=== PATIENT | male | born 1990 | race Caucasian/White ===

== ENCOUNTER 2022-05-02 19:47 | Observation (INO) ==
[2022-05-02 21:01] LABS: Rapid COVID-19 Molecular Undetected (Undetected)
[2022-05-02 21:23] LABS: ABS Lymphocytes 1.7 10^3/ul (1.0-4.8); ABS Monocytes 0.8 10^3/ul (0-0.8); ABS Neutrophils 9.9 10^3/ul (1.5-7.7); Eosinophil % 0.2 %; Hematocrit 42 % (42-52); Lymphocyte % 13.5 %; Mean Corpuscular HGB Conc 33 g/dL (31-36); Mean Corpuscular Hemoglobin 29 pg (27-31); Mean Corpuscular Volume 87 fL (80-94); Mean Platelet Volume 7.9 fL (7.4-10.4); Platelet Count 279 10^3/uL (150-450); Red Blood Count 4.89 10^6 /uL (4.18-5.48); Red Cell Distribution Width 13 % (10-15); White Blood Count 12.5 10^3/uL (3.5-10.8)
[2022-05-02] MEDS ORDERED: ceFAZolin 2 GM PREMIX 2 GM/50 ML BAG ONE (21:31)
[2022-05-02 21:35] LABS: INR 1.03 (0.89-1.11)
[2022-05-02 21:52] LABS: Albumin 4.2 g/dL (3.2-5.2); Albumin/Globulin Ratio 2.3 (1-3); Globulin 1.8 g/dL (2-4); Potassium 3.8 mmol/L (3.5-5.0); Total Bilirubin 0.5 mg/dL (0.2-1.0); eGFR CKD-EPI 104.4 (>60)
[2022-05-02] MEDS ORDERED: Midazolam 2 mg/2 ml VIAL 1 mg/ml 2 ml VIAL (2 mg) ONE (21:53)
[2022-05-02] MEDS ORDERED: fentaNYL 250 mcg/5 ml 50 MCG/ML 5 ml VIAL (250 MCG) ONE (21:53)
[2022-05-02] MEDS ORDERED: Propofol 10 MG/ML 20 ML BTL ONE (21:54)
[2022-05-02] MEDS ORDERED: Lidocaine 2% PF 5 ML VIAL ONE (21:54)
[2022-05-02] MEDS ORDERED: Rocuronium 50 mg VIAL 10 mg/ml 5 ml VIAL (50 mg) ONE (21:57)
[2022-05-02] MEDS ORDERED: Dexamethasone IV 4 MG/ML VIAL 1 ml VIAL ONE (22:21)
[2022-05-02] MEDS ORDERED: HYDROmorphone 0.5 MG/0.5 ML SYRINGE ONE (22:27)
[2022-05-02] MEDS ORDERED: Bupivacaine 0.5% SDV PF 30ML VIAL ONE (22:29)
[2022-05-02] MEDS ORDERED: Prochlorperazine 5 mg/ml 2 ml VIAL (10 mg) IV PRN (22:39)
[2022-05-02] MEDS ORDERED: Naloxone 0.4 mg VIAL 0.4 mg/ml 1 ml VIAL IV PRN (22:39)
[2022-05-02] MEDS ORDERED: HYDROmorphone 1 MG/1 ML SYRINGE IV PRN (22:39)
[2022-05-02] MEDS ORDERED: Acetaminophen IV 1 GM/100ML 1,000 MG/100 ML BAG IV ONE ×2 (22:39→23:48)
[2022-05-02] MEDS ORDERED: Ondansetron 4 mg VIAL 2 MG/ML 2 ml VIAL ONE (23:17)
[2022-05-02] MEDS ORDERED: Sugammadex 500 MG/5 ML 5 ml VIAL IV PUSH ONE (23:17)
[2022-05-03] MEDS ORDERED: oxyCODONE/Acetamin 5/325 mg TAB PO PRN (06:25)
[2022-05-03] MEDS ORDERED: NS 0.9% 1,000 ML IV SCH (06:30)
[2022-05-03 07:30] VITALS: BP 122/66
== END 2022-05-03 12:00 | disposition home or self-care (01) ==
LOC: AA 19:47 → ED 19:47 → SSU 21:28
PROVIDERS: ADMIT Urology; ATTEND Urology